=== PATIENT | male | born 1980 | race Caucasian/White ===

== ENCOUNTER 2023-12-02 08:17 | Emergency (ER) | payer OTHER, SELFPAY ==
[2023-12-02 08:23] VITALS: BP 184/114; PULSE 75; RESP 20; TEMP 37.1; O2SAT 99
--- NOTE | 2023-12-02 08:23 | ECG_ITS ---
[facility] Test Date: 2023-12-02 Pat Name: Foreign Niño Department: Room: Gender: Male Store Director: : 1980 Requested By: Myron Reynolds Order Number: [id number] Waqar MD: Kimberly Whittington M.D. Measurements Intervals [place] Rate: 74 P: 70 GA: 167 QRS: -54 QRSD: 93 T: 55 QT: 375 QTc: 416 Interpretive Statements SINUS RHYTHM POSSIBLE LEFT ATRIAL ENLARGEMENT [-0.1mV P-WAVE IN V1/V2] POSSIBLE RIGHT VENTRICULAR CONDUCTION DELAY [RSR (QR) IN V1/V2] LEFT ANTERIOR FASCICULAR BLOCK [QRS AXIS <= -45, QR IN I, RS IN II] SEPTAL MYOCARDIAL INFARCTION , OF INDETERMINATE AGE [40+ ms Q WAVE IN V1/V2] INTERPRETATION BASED ON A DEFAULT AGE OF 40 YEARS Compared to ECG 07/27/2016 07:09:39 Left anterior fascicular block now present Myocardial infarct finding now present Sinus tachycardia no longer present Electronically Signed On 12-02-2023 16:25:50 CDT by Kimberly Whittington M.D. [id number]
--- NOTE | 2023-12-02 08:27 | XR_ITS ---
WS: [id number] Examination: XR chest 1V portable 20310 Reason for Exam: dyspnea/cough Date: December 02, 2023 Comparison: February 02, 2020 Findings: The heart is not enlarged. The mediastinum is not widened. There is no pulmonary congestion or edema. There is no large effusion. There is no dense consolidation. IMPRESSION: No dense consolidation is identified.
[2023-12-02 08:44] LABS: Basophils # 0.1 10^3/uL (0.0-0.1); Eosinophils # 0.2 10^3/uL (0.0-0.8); Hematocrit 44.4 % (37-53); Lymphocytes % 35.4 %; Mean Corpuscular HGB Conc 34.9 g/dL (30-55); Mean Corpuscular Hemoglobin 31.5 pg (27-33); Mean Corpuscular Volume 90.2 fl (82-101); Mean Platelet Volume 10.7 fL (7.4-10.4); Monocytes # 0.5 10^3/uL (0.2-0.9); Monocytes % 8.5 %; Neutrophils # 2.98 10^3/uL (1.8-7.7); Neutrophils % 51.8 %; Nucleated Red Blood Cells % 0 %; Platelet Count 199 10^3/cmm (157-399); Red Blood Count 4.92 10^6/uL (3.85-5.65); Red Cell Distribution Width 12.1 % (12.1-15.1); White Blood Count 5.76 10^3/uL (3.29-11.43)
[2023-12-02] MEDS: aspirin 81 mg Chew Tablet 324 MG PO (08:45)
--- NOTE | 2023-12-02 08:55 | ED_ITS ---
HPI - Chest Pain 2 General: Chief Complaint: Chest Pain Stated Complaint: chest pain, arm pain Time Seen by Provider: 12/02/23 08:26 Source: patient Mode of arrival: ambulatory History of Present Illness: 43-year-old male presents emergency room complaining of chest pain that began yesterday tightness radiating into his right arm last night and this morning into his left arm no associated shortness of breath nausea vomiting or diaphoresis. In the last few weeks she has had other episodes of chest pain as well but not as intense as last night. It last for 3 to 5 minutes at a time resolve spontaneously has not noticed any thing that exacerbates or relieves it. Patient is diabetic he has no known history of coronary artery disease no previous stress testing evaluation he is also hypertensive he is currently on losartan. MD complaint: chest pain Pertinent past history: coronary artery disease Onset (ago): minute(s) Timing of current episode: episodic Onset: during rest Pain location: substernal Pain radiation: right arm and left arm Quality: tightness and aching Relieving factors: nothing Exacerbating factors: nothing Associated symptoms: Deny abdominal pain, diaphoresis, dyspnea, fever(s), leg edema, nausea, palpitations, sense of impending doom, syncope or vomiting Treatment prior to arrival: none Risk Factors: Coronary artery disease risk factors: diabetes Review of Systems 2 Const: Denies: fever(s), chills or diaphoresis Card: Denies: chest pain, palpitations or syncope Resp: Denies: dyspnea GI: Denies: abdominal pain, nausea or vomiting : Denies: dysuria, urinary frequency or urinary urgency Musc: Denies: neck pain or back pain Skin/Breast: Denies: rash COUNTS INCLUDE 234 BEDS AT THE [facility] ED 2 PFSH: Medical History (Updated 12/02/23 @ 13:00 by Myron Cabral DO) Diabetes Physical Exam 2 Const: GENERAL APPEARANCE: cooperative and comfortable O RIENTATION/CONSCIOUSNESS: Yes awake, Yes oriented to person, Yes oriented to place and Yes oriented to time HENMT: COMMON NORMALS: normocephalic, atraumatic and hearing grossly normal bilaterally HEAD & SCALP: normocephalic and atraumatic Resp: COMMON NORMALS: normal respiratory effort, No retractions, No use of accessory muscles and clear to auscultation bilaterally AUSCULTATION: clear to auscultation bilaterally Cardio: COMMON NORMALS: regular rate, regular rhythm and No murmurs present (Cardio) RATE: regular rate RHYTHM: regular rhythm GI: COMMON NORMALS: Soft to palpation and No hepatosplenomegaly present A USCULTATION: Yes normoactive bowel sounds PALPATION: Yes Soft to palpation, No Tenderness to palpation present (GI), No Guarding due to palpation present (GI) and Yes No hepatosplenomegaly present Extremity: COMMON NORMALS: normal to inspection, capillary refill normal, no clubbing, cyanosis or edema, no calf tenderness and no pedal edema Neuro: SENSORIUM/ORIENTATION: Yes oriented to person, Yes oriented to place and Yes oriented to time Skin: OTHER: 4 to 5 mm your round diabetic foot ulcer at the fifth MCP joint on the sole of the foot. No active drainage significant amount of callus surrounding. No redness no erythema Course 2 Vital Signs: Vital signs: Vital Signs Temperature 98.8 F 12/02/23 08:23 Pulse Rate 67 12/02/23 12:00 Respiratory Rate 20 H 12/02/23 12:00 Blood Pressure 144/86 12/02/23 12:00 Pulse Oximetry 98 12/02/23 12:00 Oxygen Delivery Me thod Room Air 12/02/23 08:23 MDM - Chest Pain Medical Decision Making Atypical chest pain no sign of acute coronary syndrome no evidence of pneumonia. PE seems unlikely as patient has not been hypoxic or tachycardic. His blood sugar is markedly elevated but there is no sign of DKA on other lab work. Will discharge the patient home and set him up for outpatient Lexiscan sestamibi stress test additionally will refer the patient to wound care clinic for the diabetic foot ulcer suspected is larger than first appears on exam now I suspect there is some further undermining underlying the callus. Additionally home take a baby aspirin start isosorbide mononitrate 30 mg daily. Medical Records I reviewed the patient's medical records. Lab Data I reviewed the patient's lab results. 12/02/23 08:32 12/02/23 08:32 Laboratory Results WBC 5.76 10^3/uL (3.29-11.43) 12/02/23 08:32 RBC 4.92 10^6/uL (3.85-5.65) 12/02/23 08:32 Hgb 15.50 g/dL (11.27-16.99) 12/02/23 08:32 Hct 44.4 % (37-53) 12/02/23 08:32 MCV 90.2 fl (82-101) 12/02/23 08:32 MCH 31.5 pg (27-33) 12/02/23 08:32 MCHC 34.9 g/dL (30-55) 12/02/23 08:32 RDW 12.1 % (12.1-15.1) 12/02/23 08:32 Plt Count 199 10^3/cmm (157-399) 12/02/23 08:32 MPV 10.7 fL (7.4-10.4) H 12/02/23 08:32 Neut % (Auto) 51.8 % 12/02/23 08:32 Lymph % (Auto) 35.4 % 12/02/23 08:32 Owen % (Auto) 8.5 % 12/02/23 08:32 Eos % (Auto) 3.0 % 12/02/23 08:32 Baso % (Auto) 1.0 % 12/02/23 08:32 Neut # (Auto) 2.98 10^3/uL (1.8-7.7) 12/02/23 08:32 Lymph # (Auto) 2.0 10^3/uL (0.8-4.8) 12/02/23 08:32 Owen # (Auto) 0.5 10^3/uL (0.2-0.9) 12/02/23 08:32 Eos # (Auto) 0.2 10^3/uL (0.0-0.8) 12/02/23 08:32 Baso # (Auto) 0.1 10^3/uL (0.0-0.1) 12/02/23 08:32 Nucleated RBC % (auto) 0 % 12/02/23 08: Nucleated RBCs # 0.0 /100WBC 12/02/23 08:32 Specimen Type Arterial 12/02/23 09:55 Sample Site Radial, left 12/02/23 09:55 ABG pH 7.41 (7.35-7.45) 12/02/23 09:55 ABG pCO2 35.9 mmHg (35-45) 12/02/23 09:55 ABG pO2 84.0 mmHg (80.0-100.0) 12/02/23 09:55 ABG PO2/FiO2 Ratio 0 12/02/23 09:55 ABG HCO3 22.8 mmol/L (22-26) 12/02/23 09:55 ABG O2 Saturation 96.9 12/02/23 09:55 ABG Base Excess -1.4 mmol/L (-2.0-2.0) 12/02/23 09:55 Dany Test Pos 12/02/23 09:55 A-a O2 Gradient 2.5 mmHg (5-10) L 12/02/23 09:55 Hematocrit 45.3 % (42-52) 12/02/23 09:55 Hgb O2 Saturation 95.2 % (95-100) 12/02/23 09:55 Carboxyhemoglobin 1.5 %THgb (0.4-20.1) 12/02/23 09:55 Methemoglobin 0.2 % (0.4-1.5) L 12/02/23 09:55 Total Hemoglobin 14.8 g/dL (14-18) 12/02/23 09:55 Sodium 132.0 mmol/L (131-143) 12/02/23 09:55 Potassium 4.9 mmol/L (3.5-5.0) 12/02/23 09:55 Glucose 307.0 mg/dL (70-115) H 12/02/23 09:55 Ionized Calcium 1.3 mmol/L (1.1-1.4) 12/02/23 09:55 O2 Delivery Device Room air 12/02/23 09:55 FiO2 21.0 % 12/02/23 09:55 Pattern Chain Maker Supervisor ID Monro 12/02/23 09:55 Sodium 132 mmol/L (136-145) L 12/02/23 08:32 Potassium 5.3 mmol/L (3.5-5.1) H 12/02/23 08:32 Chloride 97 mmol/L (98-107) L 12/02/23 08:32 Carbon Dioxide 24 mmol/L (22-29) 12/02/23 08:32 Anion Gap 16.3 (5-19) 12/02/23 08:32 BUN 12 mg/dL (6-20) 12/02/23 08:32 Creatinine 0.8 mg/dL (0.7-1.2) 12/02/23 08:32 GFR Calculation 105.0 mL/min (90-130) 12/02/23 08:32 Glucose 331 mg/dL (65-115) H 12/02/23 08:32 POC Glucose 124 mg/dL (70-110) H 12/02/23 12:52 Calculated Osmolality 287 mOsm/kg (285-295) 12/02/23 08:32 Calcium 9.7 mg/dL (8.5-10.5) 12/02/23 08:32 Total Bilirubin 0.7 mg/dL (0.15-1.2) 12/02/23 08:32 AST 29 U/L (0-40) 12/02/23 08:32 ALT 49 U/L (0-41) H 12/02/23 08:32 Alkaline Phosphatase 69 U/L (40-130) 12/02/23 08:32 Troponin T Baseline 8 ng/L (0-15) 12/02/23 08:32 Troponin T 120 Minute 7.11 ng/L (0-15) 12/02/23 10:42 Delta Troponin T -0.89 ABS# (0-10) L 12/02/23 10:42 Total Protein 6.9 g/dL (6.6-8.7) 12/02/23 08:32 Albumin 4.7 g/dL (3.5-5.2) 12/02/23 08:32 Globulin 2.2 g/dL (1.3-4.6) 12/02/23 08:32 Urine Color Yellow (Yellow) 12/02/23 08:36 Urine Appearance Clear (CLEAR) 12/02/23 08:36 Urine pH 5 (5-7) 12/02/23 08:36 Ur Specific [place] 1.010 (1.005-1.030) 12/02/23 08:36 Urine Protein Neg (Negative) 12/02/23 08:36 Urine Glucose (UA) 4+ (Normal) H 12/02/23 08:36 Urine Ketones 1+ (Negative) H 12/02/23 08:36 Urine Blood 2+ (Negative) H 12/02/23 08:36 Urine Nitrate Negative (Negative) 12/02/23 08:36 Urine Bilirubin Neg (Negative) 12/02/23 08:36 Urine Urobilinogen Neg mg/dL (Negative) 12/02/23 08:36 Ur Leukocyte Esterase Negative (Negative) 12/02/23 08:36 Urine RBC Rare /hpf (0-2) 12/02/23 08:36 Urine WBC None /hpf (0-5) 12/02/23 08:36 Ur Squamous Epith Cells None /hpf (0-5) 12/02/23 08:36 Amorphous Sediment Not Reportable 12/02/23 08:36 Urine Bacteria None /hpf (NONE) 12/02/23 08:36 Serum Ketones Negative (Negative) 12/02/23 08:32 All radiology interpretation(s) finalized by discharge Discharge Plan Discharge Patient Disposition: Home Clinical Impression: Atypical chest pain, Hyperglycemia, Diabetic foot ulcer Condition: Stable Prescriptions: New aspirin 81 mg tablet,delayed release (DR/EC) 81 mg PO DAILY Qty: 30 0RF isosorbide mononitrate 30 mg tablet extended release 24 hr 30 mg PO DAILY Qty: 30 0RF No Action metformin 500 mg Tablet 1,000 mg PO DAILY ibuprofen 200 mg Tablet 800 mg PO Q6H PRN (Reason: Pain) melatonin 10 mg Tablet 20 mg PO BEDTIME Discharge Orders: Discharge ED (Routine); Ordered 12/02/23 Ordered By: Myron Cabral Discharge Diet: Diabetic Discharge Activity: Resume usual activity Patient Instructions: Opioid Safety, Pain Management Activity Restrictions/Additional Instructions: Thank you for choosing [facility] for your healthcare needs today. Please realize this is an emergency room and that we are providing you with a medical screening exam and this may not be complete and all inclusive of all the testing and or work up that you may need to determine your ailment or severity of your illness. It is very important that you follow up as instructed or that you return to the Emergency Department should you have concerns or if your condition changes or worsens in any way. You were seen today for complaints of chest pain. Your cardiac enzymes and EKG did not show any acute changes. You were also noted to have a diabetic foot ulcer while it does not appear to be infected now this does require significant follow-up and you should be seen at the wound care clinic. Case management and your primary care doctor can make these referrals. We did submit a case management referral today. Also recommend you discuss your blood sugar control with your primary care doctor. Coding Level of Care Code ED [facility] Administrator for Mia Garduno
[2023-12-02 09:02] LABS: Alanine Aminotransferase 49 U/L (0-41); Albumin Level 4.7 g/dL (3.5-5.2); Alkaline Phosphatase 69 U/L (40-130); Anion Gap 16.3 (5-19); Aspartate Amino Transferase 29 U/L (0-40); Blood Urea Nitrogen 12 mg/dL (6-20); Calcium 9.7 mg/dL (8.5-10.5); Carbon Dioxide 24 mmol/L (22-29); Chloride 97 mmol/L (98-107); Globulin 2.2 g/dL (1.3-4.6); Glucose 331 mg/dL (65-115); Osmolality Calculated 287 mOsm/kg (285-295); Potassium 5.3 mmol/L (3.5-5.1); Sodium 132 mmol/L (136-145); Total Bilirubin 0.7 mg/dL (0.15-1.2); Total Protein 6.9 g/dL (6.6-8.7)
[2023-12-02 09:06] LABS: Troponin(5th) Baseline 8 ng/L (0-15)
[2023-12-02 09:27] LABS: Protein Urine Neg (Negative); Urine Appearance Clear (CLEAR); Urine Color Yellow (Yellow); pH Urine 5 (5-7)
[2023-12-02 09:28] LABS: Add Urine Culture? No; Add Urine Microscopic? YES; Bilirubin Urine Neg (Negative); Blood Urine 2+ (Negative); Glucose Urine UA 4+ (Normal); Ketones Urine 1+ (Negative); Leukocyte Esterase Urine Negative (Negative); Nitrate Urine Negative (Negative); RBC Urine RARE /hpf (0-2); Urobilinogen Urine Neg (Negative)
--- NOTE | 2023-12-02 09:30 | PC.PHAR ---
pt states he takes care of his own medications-pt states he ran out of his metformin pt states has been taking his wifes metformin 500mg 2 tabs (1000mg) daily states took today-[facility] last filled metformin 1000mg bid 10/08/22 30d/s-pt states been out of losartan 25mg daily-metoprolol er 100mg daily-[facility]rin xl [facility] for 30d/s-pt states been out of his insulin states unsure what insulin thinks maybe victoana rousseau states only filled tresiba u-200 15 units hs 02/08/2022-
[2023-12-02 10:09] LABS: ABG PCO2 35.9 mmHg (35-45); ABG PH Result 7.41 (7.35-7.45); Alveolar-Arterial Oxygen Gradi 2.5 mmHg (5-10); Arterial Blood Gas Hematocrit 45.3 % (42-52); Base Excess ABG -1.4 mmol/L (-2.0-2.0); Blood Gas Allen Test Pos; Blood Gas Operator Identificat MONRO; Blood Gas Sample Site Radial, left; Blood Gas Sample Type Arterial; Carboxyhemoglobin 1.5 %THgb (0.4-20.1); HCO3 ABG 22.8 mmol/L (22-26); HGB O2 Sat 95.2 % (95-100); Ionized Calcium Level - ABG 1.3 mmol/L (1.1-1.4); Methemoglobin 0.2 % (0.4-1.5); Oxygen Device ROOM AIR; Oxygen Saturation ABG 96.9; PO2 FiO2 Ratio Arterial Blood 0; Potassium Level - ABG 4.9 mmol/L (3.5-5.0); Total Hemoglobin 14.8 g/dL (14-18)
[2023-12-02 10:12] LABS: Ketone (Acetest) Serum Negative (Negative)
[2023-12-02 11:16] LABS: Troponin 5 2HR 7.11 ng/L (0-15)
[2023-12-02 11:17] LABS: Troponin 5 2HR Delta -0.89 ABS# (0-10)
[2023-12-02] MEDS: sodium chloride 0.9% 1,000 ML 999 ML IV (11:43)
[2023-12-02] MEDS: insulin regular-human 100 units/1 mL 10 UNIT IVP (11:46)
[2023-12-02 11:47] VITALS: BP 131/94; PULSE 66; RESP 22; O2SAT 98
[2023-12-02 11:51] LABS: Glucose Point of Care 320 mg/dL (70-110)
[2023-12-02 12:00] VITALS: BP 144/86; PULSE 67; RESP 20; O2SAT 98
--- NOTE | 2023-12-02 12:00 | ECG_ITS ---
[facility] Test Date: 2023-12-02 Pat Name: Foreign Niño Department: Room: Gender: Male Physician Office Rep: : 1980 Requested By: Myron Reynolds Order Number: [id number] Waqar MD: Kimberly Whittington M.D. Measurements Intervals [place] Rate: 67 P: 56 FL: 169 QRS: -50 QRSD: 94 T: 52 QT: 404 QTc: 428 Interpretive Statements SINUS RHYTHM INCOMPLETE RIGHT BUNDLE BRANCH BLOCK [90+ ms QRS DURATION, TERMINAL R IN V1/V2, 40+ ms S IN I/aVL/V4/V5/V6] LEFT ANTERIOR FASCICULAR BLOCK [QRS AXIS <= -45, QR IN I, RS IN II] Compared to ECG 12/02/2023 08:23:14 Incomplete right bundle-branch block now present Myocardial infarct finding no longer present Electronically Signed On 12-02-2023 16:35:50 CDT by Kimberly Whittington M.D. [id number]
[2023-12-02 12:55] LABS: Glucose Point of Care 124 mg/dL (70-110)
--- NOTE | 2023-12-04 08:23 | DCPLANNER ---
Message sent to Wound care
== END 2023-12-02 13:13 | disposition home or self-care (01) ==
PROVIDERS: Emergency Provider Family Medicine
DX: R07.89 Other chest pain (principal); E11.65 Type 2 diabetes mellitus with hyperglycemia; E11.621 Type 2 diabetes mellitus with foot ulcer; Z79.84 Long term (current) use of oral hypoglycemic drugs
CPT/HCPCS: 36415; 36416; 36600; 71045; 80051; 80053; 81001; 82009; 82330; 82805; 82962; 84484; 85025; 93005; 96374; 99285; J1815; J7030

== ENCOUNTER → 2024-07-06 09:16 | Outpatient (BNVA) | payer OTHER, SELFPAY | PROVIDERS: Visit Provider Thoracic Surgery (Cardiothoracic Vascular Surgery) | DX: E11.621 Type 2 diabetes mellitus with foot ulcer (principal); L97.509 Non-pressure chronic ulcer of other part of unspecified foot with unspecified severity; R52 Pain, unspecified | CPT/HCPCS: 87070; 87075; 87205 ==

== ENCOUNTER 2024-10-02 13:22 | Outpatient (CLI) | payer OTHER, SELFPAY ==
--- NOTE | 2024-10-02 13:28 | XR_ITS ---
WS: [id number] Exam: XR foot LT min 3V* [id number] Date/Time of Exam: 10/02/2024 1:29 PM Reason For Exam: Recalcitrant left fifth metatarsal diabetic ulcer No fracture or bone destruction identified. Skin ulceration and edema along the distal fifth metatars al. There is some deformity of the distal fifth metatarsal which is well corticated and may be second dre to prior infection or trauma. The joints are well-maintained. No radiopaque soft tissue foreign b odies. XR/XR foot LT min 3V* [id number] IMPRESSION: 1. No sign of fracture or acute bone destruction.
== END 2024-10-02 13:23 | disposition home or self-care (01) ==
LOC: RAD 13:26
PROVIDERS: PCP Family Medicine; Visit Provider Thoracic Surgery (Cardiothoracic Vascular Surgery)
DX: E11.621 Type 2 diabetes mellitus with foot ulcer (principal); L97.529 Non-pressure chronic ulcer of other part of left foot with unspecified severity; R93.6 Abnormal findings on diagnostic imaging of limbs
CPT/HCPCS: 73630

== ENCOUNTER → 2024-10-28 13:57 | Outpatient (BNVA) | payer OTHER, SELFPAY | PROVIDERS: PCP Family Medicine; Visit Provider Podiatrist Foot & Ankle Surgery | DX: E11.621 Type 2 diabetes mellitus with foot ulcer (principal); L97.522 Non-pressure chronic ulcer of other part of left foot with fat layer exposed; L60.3 Nail dystrophy; Z79.84 Long term (current) use of oral hypoglycemic drugs; G62.9 Polyneuropathy, unspecified; I73.9 Peripheral vascular disease, unspecified; L84 Corns and callosities | CPT/HCPCS: 87070; 87075; 87077; 87186; 87205 ==

== ENCOUNTER 2024-11-09 08:56 | Day surgery (SDC) | payer OTHER, SELFPAY ==
[2024-11-09] VITALS (9 sets, daily range): BP systolic 111–133; BP diastolic 76–85; PULSE 78–98; RESP 16–18; TEMP 36.3–37.1; O2SAT 95–97; BMI 28.2
[2024-11-09] MEDS: sodium chloride 0.9% 1,000 ML 30 ML IV (09:24)
--- NOTE | 2024-11-09 09:27 | ANES.PREANE2 ---
Pre-Anesthetic Assessment Height/Weight: Height 1.88 m Weight 99.79 kg Temp Pulse Resp BP Pulse Ox O2 Del Method 98.7 F 98 18 133/84 97 Room Air 11/09/24 09:19 11/09/24 09:19 11/09/24 09:19 11/09/24 09:19 11/09/24 09:19 11/09/24 09:22 Preop Diagnosis: Left foot tailor's bunion Operation Date: 11/09/24 10:40 Proposed Procedures p Left foot fifth metatarsal head resection(Left) - Crow Munoz DPM Familial anesthetic complications: None Was Beta Jhoan taken within 24 hours: N/A Was Clonidine taken within 24 hours: N/A Last intake: Intake Last Liquid Date 11/08/24 Last Liquid Time 20:30 Last Solid Date 11/08/24 Last Solid Time 20:30 Social Alcohol (6-8 beers a night) and Tobacco Exam alert, oriented x 3, clear to auscultation bilaterally and regular rate & rhythm Airway Mallampati: Class II Dentition: full and other (poor dentition) CV/HEM Hypertension Metabolic Diabetes Mellitus Anesthetic Plan ASA status: 2 Anesthesia: MAC Risk of > 500 ml blood loss (7ml/kg in children): No Medications/Allergies Home Medications ?Medication ?Instructions ?Recorded ?Confirmed ?Last Taken ?Type ibuprofen 200 mg tablet 800 mg PO Q6H PRN Pain 12/02/23 11/05/24 11/05/24 History melatonin 10 mg tablet 20 mg PO BEDTIME 12/02/23 11/05/24 11/08/24 History metformin 500 mg tablet 1,000 mg PO DAILY 12/02/23 11/05/24 11/07/24 History clindamycin HCl 300 mg capsule 300 mg PO TID #21 caps 10/31/24 11/05/24 11/08/24 Rx dapagliflozin propanediol 10 mg 10 mg PO DAILY 11/05/24 11/05/24 11/07/24 History tablet (Farxiga) empagliflozin 25 mg tablet 25 mg PO DAILY 11/05/24 11/05/24 11/07/24 History (Jardiance) insulin degludec 100 unit/mL (3 15 unit SUBCUT DAILY 11/05/24 11/05/24 11/07/24 History mL) subcutaneous pen (Tresiba FlexTouch U-100 insulin) losartan 50 mg tablet 50 mg PO DAILY 11/05/24 11/05/24 11/08/24 History sertraline 25 mg tablet 25 mg PO DAILY 11/05/24 11/05/24 11/08/24 History Allergies Allergy/AdvReac Type Severity Reaction Status Date / Time No Known Allergies Allergy Verified 10/28/24 13:31 [facility] Anesthesia Medical History Diabetes Social History Smoking and tobacco/nicotine status: unknown if used tobacco/nicotine Data Anesthesia Cardiac Studies: No Data to Display
[2024-11-09] MEDS: CELEcoxib 200 mg Capsule 400 MG PO (09:30)
[2024-11-09] MEDS: gabapentin 300 mg Capsule PO (09:30)
[2024-11-09 09:35] LABS: Glucose Point of Care 220 mg/dL (70-110)
--- NOTE | 2024-11-09 09:41 | P.HPUD_ITS ---
Surgery/Procedure H&P Update DATE OF PROCEDURE: November 09, 2024 DATE H&P PERFORMED: 10/28/24 H&P UPDATE INFORMATION: I have reviewed H&P completed within last 30 days, I have examined patient prior to procedure, No changes to prior documentation and H&P is in [facility] EMR on date indicated PREOP DIAGNOSIS: Left foot tailor's bunion PLANNED PROCEDURE: Operation Date: 11/09/24 10:40 Proposed Procedures p Left foot fifth metatarsal head resection(Left) - Crow Munoz DPM
[2024-11-09] MEDS: ceFAZolin 2,000 mg SDV 2000 MG IVP (09:46)
[2024-11-09] MEDS: BUPivacaine 0.5% INJ 30 mL INJECTION (10:11)
--- NOTE | 2024-11-09 10:34 | P.BOP_ITS ---
Date of procedure: 11/09/2024 Surgeon name: Paulina RussellPJaswinder Botany Laboratory Assistant(s) name(s): Abraham Procedure(s) performed: Fifth metatarsal head resection left foot Description of findings: Tailor's bunion left foot Estimated blood loss: 2 cc Tourniquet time: 23 minutes Specimen(s) removed: Fifth metatarsal head left foot Post-operative diagnosis: Tailor's bunion left foot
--- NOTE | 2024-11-09 10:35 | PM.OP ---
Operative Report Date of procedure: November 09, 2024 Surgeon: Crow Munoz DPM Procedure: Date of procedure: 11/09/2024 Pre-op diagnosis: Left foot tailor's bunion Post-op diagnosis: Same Post-op findings: Tailor's bunion left foot Procedure done: Fifth metatarsal head resection left foot CPT 01971 Implants: None Specimens removed: Fifth metatarsal head left foot Surgeon: Dr. Crow Munoz DPM Enlisted Aircrew/Aerial Observer/Gunner: Abraham Estimated blood loss: 2 cc Tourniquet time: 23 minutes Complications: None Patient is a 44-year-old male that has a history of left foot tailor's bunion. The patient has had the aforementioned chief complaint for some time. Conservative treatment measures have been attempted and the patient has opted for surgical intervention at this time. A lengthy discussion regarding the procedure, including risks and complications has been had with the patient and is noted in the recent clinic note. Written and verbal consent have been obtained. All patient questions have been answered to the patient?s satisfaction. No written or verbal guarantees have been given or implied. The patient has been NPO since midnight. The history has been reviewed and the history and physical is current. The signed consent was confirmed and placed in the patient chart. Patient imaging has been reviewed and is consistent with the diagnosis. Under mild sedation, the patient was brought into the operating room and placed on the table in the supine position. IV antibiotics were given by the anesthesia team as preoperative surgical prophylaxis. IV sedation was then performed by the anesthesiateam. A pneumatic tourniquet was then placed about the left ankle. The operative extremity was then prepped and draped in the usual fashion. The extremity was then elevated and exsanguinated before the tourniquet was inflated to 250 mmHg. After inflation, the following procedure was then performed. Attention was directed to the left foot. A #15 blade was used to make a 5 cm incision overlying the fifth metatarsal phalangeal joint. Dissection was carried down through subcutaneous and superficial fascia to the level of the fifth metatarsal phalangeal joint which was exposed. Tailor's bunion formed was noted. A sagittal bone saw was used to make a beveled transverse cut through the fifth metatarsal shaft. The capital fragment of fifth metatarsal head was passed from the operative field to be sent as specimen. A hand rasp was used to rasp the plantar aspect of the fifth metatarsal shaft. No prominence was noted. The site was irrigated with copious amounts sterile saline before attention was directed to closure. Deep tissue and subcuticular closure was performed using 2-0 Vicryl. Skin was closed with 4-0 nylon in horizontal mattress fashion. Tourniquet was let down good hyperemic response was noted to all digits of the left foot. Incision site was dressed with Xeroform, 4 x 4 gauze, Kerlix, Carlos. The patient tolerated the procedure and anesthesia well and without complication. The patient was transported from the operating room to the recovery room with vital signs stable and vascular status intact to all digits of the left foot. The patient was given both written and verbal instructions to remain weightbearing as tolerated to the operative extremity, to keep dressings/splint clean, dry and intact and to take pain medication as directed. The patient will follow-up in the outpatient setting at their scheduled appointment. The patient was discharged with my personal number and was instructed to call if any questions or issues should arise. They were discharged home once anesthesia criteria was met.
[2024-11-09] MEDS: TRAMadol 50 mg Tablet PO (11:11)
--- NOTE | 2024-11-09 11:30 | ANE.PACU2 ---
Inpatient post-anesthesia follow up: Airway intact: Yes Vital signs: Temperature 97.5 F Pulse Rate 84 Respiratory Rate 18 Blood Pressure 126/83 Pulse Oximetry 97 Oxygen Delivery Me thod Room Air Oxygen Flow Rate Fraction of Inspir ed Oxygen Hydration adequate: Yes Nausea and vomiting: No Pain level: 1 Mental status: Baseline
== END 2024-11-09 11:33 | disposition home or self-care (01) ==
PROVIDERS: PCP Family Medicine; Visit Provider Podiatrist Foot & Ankle Surgery
DX: M21.622 Bunionette of left foot (principal); I10 Essential (primary) hypertension; L97.529 Non-pressure chronic ulcer of other part of left foot with unspecified severity; E11.40 Type 2 diabetes mellitus with diabetic neuropathy, unspecified; E11.621 Type 2 diabetes mellitus with foot ulcer; E11.51 Type 2 diabetes mellitus with diabetic peripheral angiopathy without gangrene; L84 Corns and callosities; Z79.82 Long term (current) use of aspirin; Z79.84 Long term (current) use of oral hypoglycemic drugs; Z79.899 Other long term (current) drug therapy; Z79.4 Long term (current) use of insulin
CPT/HCPCS: 28113; 36416; 82962; 88305; 88311; J0690; J2704; J3010; J3490; J7030; J9999

== ENCOUNTER → 2024-11-16 13:07 | Outpatient (BNVA) | payer OTHER, SELFPAY | PROVIDERS: PCP Family Medicine; Visit Provider Podiatrist Foot & Ankle Surgery | DX: Z98.890 Other specified postprocedural states (principal); L60.3 Nail dystrophy; E11.42 Type 2 diabetes mellitus with diabetic polyneuropathy; G62.9 Polyneuropathy, unspecified; I73.9 Peripheral vascular disease, unspecified; L84 Corns and callosities; Z79.84 Long term (current) use of oral hypoglycemic drugs; Z79.4 Long term (current) use of insulin | CPT/HCPCS: 73630 ==